=== PATIENT | male | born 1945 | race Caucasian/White ===

== ENCOUNTER 2017-03-05 08:56 | Emergency (ER) | payer MEDICARE ==
[~2017-03-05] VITALS: Ht 180.3 cm; Wt 62.7 kg
[2017-03-05] MEDS ORDERED: methylPREDNISolone INJ 125 MG/2 ML VIAL (J2930) IV ONE (09:15)
[2017-03-05] MEDS ORDERED: FLOM5CAP PO (09:19)
[2017-03-05] MEDS ORDERED: ALEN70TA39 PO (09:19)
[2017-03-05] MEDS ORDERED: GABA-282 PO (09:19)
[2017-03-05] MEDS ORDERED: HYDR-3713 PO (09:19)
[2017-03-05] MEDS: IPRATROPIUM 0.5MG/ALBUTEROL 2.5MG INH SOL UD 3ML (DUONEB)(J7620) NEB PRN ×3 (09:23→10:11)
[2017-03-05 09:27] LABS: ABG BASE EXCESS -1.7 (-2.0-2.0); ABG HCO3 21.9 MEQ/L (22.0-26.0); ABG PARTIAL PRESSURE CO2 33.7 mmHg (35.0-45.0); ABG STANDARD HCO3 22.7 MEQ/L (22.0-26.0); ABG pH (ARTERIAL) 7.431 UNITS (7.350-7.450)
--- NOTE | 2017-03-05 09:27 | REP ---
Clinical: Dyspnea. Cough. Comparison: None. Findings: Left-sided [id number] with tip in the SVC. Cardiac silhouette is within normal limits. Right lower lobe/right middle lobe mass density is identified. Chronic interstitial changes are suggested along with blunting to the diaphragmatic surfaces and costophrenic angles which may represent small pleural reactions or chronic change. No pneumothorax. Impression: Mass density in the medial right lower lung zone. Signed by Itz Wilkes MD 03/05/2017 09:18 A
[2017-03-05 09:29] LABS: ABG PARTIAL PRESSURE O2 40.8 mmHg (75.0-100.0)
[2017-03-05 09:32] LABS: BASO % 0.3 % (0.0-1.0); EOS # 0.4 10^3/uL (0.0-0.50); EOS % 3.3 % (0.0-3.0); IMMATURE GRANULOCYTE % 0.3 % (0-0); LYMPH # 1.7 10^3/uL (1.5-4.5); LYMPH % 12.6 % (24.0-44.0); MEAN CORPUSCULAR HEMOGLOBIN 30.9 pg (27.0-33.0); MEAN CORPUSCULAR HGB CONC 32.6 g/dl (32.0-36.5); MEAN CORPUSCULAR VOLUME 94.9 fl (80.0-96.0); MONO # 0.8 10^3/uL (0.0-0.8); MONO % 5.7 % (0.0-5.0); NEUTROPHILS # 10.2 10^3/uL (1.8-7.7); NEUTROPHILS % 77.8 % (36.0-66.0); PLATELET COUNT, AUTOMATED 258 10^3/uL (150-450); RED CELL DISTRIBUTION WIDTH 12.6 % (11.5-14.5); WHITE BLOOD COUNT 13.1 10^3/uL (4.0-10.0)
[2017-03-05 09:55] LABS: ANION GAP 9 MEQ/L (8-16); BLOOD UREA NITROGEN 14 MG/DL (7-18); CALCIUM LEVEL 8.8 MG/DL (8.8-10.2); CARBON DIOXIDE LEVEL 27 MEQ/L (21-32); CHLORIDE LEVEL 105 MEQ/L (98-107); CREATININE FOR GFR 0.82 MG/DL (0.70-1.30); GLOMERULAR FILTRATION RATE > 60.0 (>42); GLUCOSE, FASTING 123 MG/DL (83-110); POTASSIUM SERUM 3.8 MEQ/L (3.5-5.1); SODIUM LEVEL 141 MEQ/L (136-145)
[2017-03-05 10:00] LABS: ALBUMIN 3.5 GM/DL (3.2-5.2); ALBUMIN/GLOBULIN RATIO 0.8 (1.00-1.93); BILIRUBIN,DIRECT 0.1 MG/DL (0.0-0.2); BILIRUBIN,TOTAL 0.5 MG/DL (0.2-1.0); TOTAL PROTEIN 7.9 GM/DL (6.4-8.2)
[2017-03-05] MEDS ORDERED: ISOVUE-370 76% 100ML VIAL (Q9967) As Ordered ONE (10:10)
[2017-03-05] MEDS ORDERED: MOXIFLOXACIN HCL 400 MG in APPROPRIATE DILUENT 1 EA IV ONE (11:15)
[2017-03-05] MEDS ORDERED: NS 1,000 ML IV ONE ×2 (11:30)
[2017-03-05 11:45] VITALS: O2SAT 82
--- NOTE | 2017-03-05 12:15 | REP ---
Clinical: Hypoxia. Dyspnea. Technique: Axial contrast enhanced images from the thoracic inlet to the upper abdomen using 100 ml Isovue 370 intravenous contrast material with multiplanar MIP re-formations. Findings: A 6.5 x 4.7 x 5.3 cm presumed primary lung neoplasm is identified in the right middle lobe along with extensive conglomerate mediastinal and bilateral hilar adenopathy as well as 1.9 cm satellite lesion in the perihilar left upper lobe (image 44) and 1.1 cm satellite lesion in the right lower lobe (image 53). Left lower lobe and lingular consolidations are appreciated along with right lower lobe atelectasis and scattered bilateral ground-glass opacities. Underlying chronic interstitial changes and bronchiectasis are also apparent. No significant effusion. There is no evidence for pulmonary embolus. Thoracic aorta without aneurysm or dissection. No cardiomegaly. Surrounding musculoskeletal structures demonstrate degenerative changes. Limited upper abdomen demonstrates 10 mm nodule in the left adrenal gland which is nonspecific. Impression: 1. A 6.5 cm right middle lobe lung mass with extensive mediastinal and bilateral hilar adenopathy and at least two satellite lesions identified in the left upper lobe and right lower lobe. 2. Lingular and left lower lobe consolidations along with scattered bilateral ground-glass opacities. Underlying chronic interstitial changes and bronchiectasis. 3. No pulmonary embolus. Normal thoracic aorta without aneurysm or dissection. Signed by Itz Wilkes MD 03/05/2017 12:07 P
[2017-03-05 13:45] VITALS: BP 130/69
--- NOTE | 2017-03-05 18:11 | ECGEPIP ---
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
--- NOTE | 2017-03-05 19:02 | CR ---
DATE OF CONSULTATION: 03/05/2017 CONSULTATION FOR: Dr. Delacruz REASON FOR CONSULTATION: Hypoxic respiratory failure. PRIMARY CARE PROVIDER: Dr. Paulie Banegas THORACIC SURGEON: Dr. Miller. Covering thoracic surgeon, Dr. Stewart CHIEF COMPLAINT: Shortness of breath. HISTORY OF PRESENT ILLNESS: This is a 72-year-old male patient with underlying medical history of multiple sclerosis, baseline high functioning, able to ambulate. About a month ago patient had some shortness of breath. Subsequently had a chest x-ray done followed by CT scan with confirmation of lung cancer. Patient had bronchoscopy and repeat bronchoscopy with laser ligation done by Dr. Miller. Procedure was done on Wednesday. MRI of the brain was negative. PET scan was appreciated with metastatic stage IV cancer, squamous cell carcinoma, stage IV, as per family. Procedure was done at [facility] on Wednesday. As of yesterday reported some shortness of breath that is progressively worsening until this morning with severe dyspnea. Denies any significant cough, hemoptysis, or productive of any sputum. Patient denies any chest pain, pressure, or discomfort. In the emergency room patient was found to be hypoxic down to 50, placed initially on continuous positive airway pressure (CPAP). Did not tolerate. Later switched to 100% on re-breather. Patient started on broad-spectrum antibiotics. Hospitalist team was consulted for possible admission. Patient denies any chest pain, pressure, or discomfort. Denies any fevers or chills. Denies any sick contacts, nausea, vomiting. Currently feels a lot more comfortable than before but still remains on 100% rebreather. Patient desaturates with any movement. ALLERGIES: No known drug allergies. PAST MEDICAL HISTORY: 1. Recently diagnosed stage IV squamous cell lung cancer. 2. Multiple sclerosis. PAST SURGICAL HISTORY: 1. Cholecystectomy. 2. Laminectomy. 3. Bronchoscopy. SOCIAL HISTORY: Quit smoking 35 years ago. Denies alcohol use. Lives at home. Baseline ambulatory. FAMILY HISTORY: Brother with colon cancer. REVIEW OF SYSTEMS: Reported shortness of breath and no significant cough. Not on oxygen at home. Oncology: Patient was about to be set up see Dr. Fernanda Muro but has not yet seen Dr. Fernanda Muro. HOME MEDICATIONS: - hydrocodone/acetaminophen 5/325 mg by mouth three times a day as needed - alendronate 70 mg once a week on Wednesday - gabapentin 300 mg by mouth three times a day - Flomax 0.4 mg tablet by mouth daily PHYSICAL EXAMINATION: VITAL SIGNS: Temperature 97.7, pulse 103, respirations 22, blood pressure 130/69, pulse oximetry 91% on 100% nonrebreather. GENERAL: Patient frail in no acute distress. HEENT: Normocephalic, atraumatic. PULMONARY: Diminished breath sounds bilaterally. Bibasilar rhonchi. CARDIAC: Mild tachycardia, regular. No murmurs detected. S1, S2. ABDOMEN: Soft and nontender. Positive bowel sounds. EXTREMITIES: No clubbing, cyanosis, or edema. NEUROLOGIC: No focal deficits. EKG: Sinus tachycardia at 108. LABORATORY DATA: WBC 13.1, hemoglobin and hematocrit 12.7/39, platelets 258. Chemistry: Sodium 141, potassium 3.8, chloride 105, bicarbonate 27, BUN 14, creatinine 0.82, lactic acid 4.6. Cardiac enzymes: Troponin 0.19. Influenza negative. CT angiogram negative for pulmonary embolism (PE). Pressure of 6.5 cm, right middle lobe mass with extensive mediastinal and bilateral hilar adenopathy and at least two satellite lesions identified with left upper lobe and right lower lobe lingular and left lower lobe consolidation with scattered bilateral ground-glass opacity, underlying interstitial changes, and bronchiectasis. ASSESSMENT AND PLAN: This is a 72-year-old male patient with underlying medical history of stage IV squamous cell lung cancer, recently diagnosed with recent bronchoscopy on Wednesday as well as multiple sclerosis, presented with hypoxic respiratory failure. Hypoxic respiratory failure. Differential diagnoses include multilobar hospital-acquired pneumonia given recent procedures versus worsening cancer with postobstructive pneumonia. CT scan appreciated. Case discussed with emergency room provider as well as [facility] pulmonary thoracic physician, Dr. Stewart, and family. Patient does not want to be intubated and stated that in the event that his respiration worsens with 100% nonrebreather, he would like to be comfort measures, but as of right now he still wants to pursue all care, which includes antibiotics and chemotherapy regimen. Patient with only minimal leukocytosis. Case discussed with patient's family. Given patient has advanced cancer and [facility] does not offer inpatient chemotherapy, in the event that patient receives antibiotics for the next 24-48 hours without improvement, likely patient will need to be transferred to [facility] for further care, possible advanced bronchoscopy with stent placement and further treatment of underlying lesion versus inpatient chemotherapy, given it is patient's wish to continue to be treated for cancer. As of right now, family elected to be transferred right now given that they do not want to delay further care of the patient, which is actually reasonable. Case discussed with Dr. Stewart. Agreeable to accept the patient for transfer. Antibiotics given in the emergency department (ED). Case discussed with Dr. Delacruz. Subsequently transfer was arranged.
== END 2017-03-05 13:55 | disposition short-term general hospital (02) ==
LOC: M ED 08:56
DX: R09.02 Hypoxemia (principal); R06.02 Shortness of breath; R91.8 Other nonspecific abnormal finding of lung field; R00.0 Tachycardia, unspecified; C34.90 Malignant neoplasm of unspecified part of unspecified bronchus or lung; G35 Multiple sclerosis
CPT/HCPCS: 36600; 71010; 71275; 80048; 80076; 82550; 82553; 82803; 83605; 83880; 84443; 84484; 85025; 87040; 87804; 93005; 93041; 94640; 96374; 96375; 99291; J2280; J2930; Q9967

== ENCOUNTER 2017-03-11 17:51 | Emergency (ER) | payer MEDICARE ==
[~2017-03-11] VITALS: Ht 180.3 cm; Wt 62.7 kg
[~2017-03-11 17:51] MED LIST: ALEN70TA39 PO; FLOM5CAP PO; GABA-282 PO; HYDR-3713 PO
[2017-03-11 18:30] LABS: ABG BASE EXCESS 2.5 (-2.0-2.0); ABG HCO3 25.2 MEQ/L (22.0-26.0); ABG PARTIAL PRESSURE CO2 32.7 mmHg (35.0-45.0); ABG PARTIAL PRESSURE O2 89.1 mmHg (75.0-100.0); ABG STANDARD HCO3 26.7 MEQ/L (22.0-26.0); ABG TOTAL CO2 26.2 MEQ/L (23.0-31.0); ABG pH (ARTERIAL) 7.505 UNITS (7.350-7.450)
[2017-03-11 19:53] LABS: BASO % 0.2 % (0.0-1.0); IMMATURE GRANULOCYTE % 0.4 % (0-0); LYMPH % 1.7 % (24.0-44.0); MEAN CORPUSCULAR HEMOGLOBIN 30.9 pg (27.0-33.0); MEAN CORPUSCULAR HGB CONC 33.6 g/dl (32.0-36.5); MEAN CORPUSCULAR VOLUME 91.8 fl (80.0-96.0); MONO # 0.6 10^3/uL (0.0-0.8); MONO % 4.5 % (0.0-5.0); NEUTROPHILS # 11.6 10^3/uL (1.8-7.7); NEUTROPHILS % 93.2 % (36.0-66.0); PLATELET COUNT, AUTOMATED 432 10^3/uL (150-450); RED CELL DISTRIBUTION WIDTH 12.7 % (11.5-14.5); WHITE BLOOD COUNT 12.4 10^3/uL (4.0-10.0)
[2017-03-11] MEDS ORDERED: VANCOMYCIN HCL 1,000 MG, VIAL MATE ADAPTER 1 EACH in D5W 250 ML IV ONE (20:00)
[2017-03-11] MEDS ORDERED: PIPERACILLIN/TAZOBACTAM SOD 3.375 GM in APPROPRIATE DILUENT 1 EA IV ONE (20:00)
--- NOTE | 2017-03-11 20:00 | REP ---
Clinical: Known right lung mass with shortness of breath. Comparison: 03/05/2017. Findings: Marked diffuse bilateral ground-glass and interstitial opacities noted throughout the bilateral lung mcnair. The right lung mass is obscured by overlying opacities. Forming consolidations with air bronchograms are also suggested and the right upper lobe and to a lesser extent the left upper lobe. No obvious effusion. No pneumothorax. Skeletal structures are intact. [id number]-[id number]-Mzwi with tip in the SVC. Impression: Marked increased diffuse ground-glass and interstitial opacities with forming consolidations and air bronchograms in the right upper lobe and left upper lobe. Right lower lung mass obscured by the opacities. Signed by Itz Wilkes MD 03/11/2017 07:52 P
[2017-03-11 20:21] LABS: LYMPH # 0.2 10^3/uL (1.5-4.5); POSITIVE DIFF POS FLAG
[2017-03-11 20:31] LABS: ALBUMIN 2.4 GM/DL (3.2-5.2); ALKALINE PHOSPHATASE 77 U/L (45-117); ALT/SGPT 20 U/L (12-78); ANION GAP 10 MEQ/L (8-16); AST/SGOT 24 U/L (7-37); BILIRUBIN,DIRECT 0.3 MG/DL (0.0-0.2); BLOOD UREA NITROGEN 15 MG/DL (7-18); CALCIUM LEVEL 8.4 MG/DL (8.8-10.2); CARBON DIOXIDE LEVEL 30 MEQ/L (21-32); CHLORIDE LEVEL 101 MEQ/L (98-107); CREATININE FOR GFR 0.55 MG/DL (0.70-1.30); GLOMERULAR FILTRATION RATE > 60.0 (>42); GLUCOSE, FASTING 125 MG/DL (83-110); POTASSIUM SERUM 3.9 MEQ/L (3.5-5.1); SODIUM LEVEL 141 MEQ/L (136-145); TOTAL PROTEIN 6.4 GM/DL (6.4-8.2)
[2017-03-11] MEDS ORDERED: FUROSEMIDE 40 MG/4 ML VIAL (J1940) IV ONE (21:00)
[2017-03-11 22:59] VITALS: BP 128/72
== END 2017-03-11 23:01 | disposition short-term general hospital (02) ==
LOC: EDBD 17:51 → M ED 17:51
DX: J18.9 Pneumonia, unspecified organism (principal); R94.31 Abnormal electrocardiogram [ECG] [EKG]; C34.90 Malignant neoplasm of unspecified part of unspecified bronchus or lung; G35 Multiple sclerosis; Z87.891 Personal history of nicotine dependence; Z79.899 Other long term (current) drug therapy
CPT/HCPCS: 36415; 36600; 71010; 80048; 80076; 82550; 82553; 82803; 83605; 83880; 84443; 84484; 85025; 87040; 87804; 93041; 96365; 96366; 96367; 96374; 99285; J1940; J2543; J3370

== ENCOUNTER → 2017-03-22 | Outpatient (REF) ==
[2017-03-22 08:46] LABS: MEAN CORPUSCULAR HGB CONC 32.1 g/dl (32.0-36.5); MEAN CORPUSCULAR VOLUME 93.5 fl (80.0-96.0); PLATELET COUNT, AUTOMATED 329 10^3/uL (150-450); RED CELL DISTRIBUTION WIDTH 12.7 % (11.5-14.5)
[2017-03-22 09:16] LABS: ALBUMIN 2.6 GM/DL (3.2-5.2); ALBUMIN/GLOBULIN RATIO 0.63 (1.00-1.93); ALKALINE PHOSPHATASE 56 U/L (45-117); ALT/SGPT 17 U/L (12-78); ANION GAP 9 MEQ/L (8-16); AST/SGOT 22 U/L (7-37); BILIRUBIN,TOTAL 0.3 MG/DL (0.2-1.0); BLOOD UREA NITROGEN 15 MG/DL (7-18); CALCIUM LEVEL 8.5 MG/DL (8.8-10.2); CARBON DIOXIDE LEVEL 27 MEQ/L (21-32); CHLORIDE LEVEL 104 MEQ/L (98-107); CREATININE FOR GFR 0.59 MG/DL (0.70-1.30); GLOMERULAR FILTRATION RATE > 60.0 (>42); GLUCOSE, FASTING 113 MG/DL (83-110); POTASSIUM SERUM 4.2 MEQ/L (3.5-5.1); SODIUM LEVEL 140 MEQ/L (136-145); TOTAL PROTEIN 6.7 GM/DL (6.4-8.2)
== END ==
LOC: SKLAB4 09:13
PROVIDERS: ATTEND Internal Medicine
DX: Z00.00 Encounter for general adult medical examination without abnormal findings (principal)

== ENCOUNTER → 2017-03-29 | Outpatient (REF) ==
[2017-03-29 08:57] LABS: MEAN CORPUSCULAR HEMOGLOBIN 30.1 pg (27.0-33.0); MEAN CORPUSCULAR HGB CONC 31.6 g/dl (32.0-36.5); MEAN CORPUSCULAR VOLUME 95.1 fl (80.0-96.0); PLATELET COUNT, AUTOMATED 353 10^3/uL (150-450); RED CELL DISTRIBUTION WIDTH 13.2 % (11.5-14.5); WHITE BLOOD COUNT 6.1 10^3/uL (4.0-10.0)
== END ==
LOC: SKLAB4 09:40
PROVIDERS: ATTEND Internal Medicine
DX: D64.9 Anemia, unspecified (principal)

== ENCOUNTER → 2017-04-01 | Outpatient (CLI) | payer MEDICARE ==
[~2017-04-01] MED LIST changes: +GASTROGRAFIN SOLUTION 30ML (Q9963) As Ordered ONE; +ISOVUE-370 76% 100ML VIAL (Q9967) As Ordered ONE
--- NOTE | 2017-04-01 11:40 | REP ---
CT ABDOMEN AND PELVIS WITHOUT AND WITH IV CONTRAST: With oral contrast. HISTORY: Non-small cell carcinoma of the lung. CT CONTRAST DOSE: 100 mL of intravenous Isovue 370. Oral contrast also administered in the form of a diluted Gastrografin. Comparison is made with images from PET/CT scan done February 09, 2017. CT FINDINGS: Digital gallery or museum curator radiograph demonstrates a 5.9 cm mass in the right infrahilar region and at least one other pulmonary nodule in the left perihilar region. There is a small right pleural effusion. No ascites is seen. The liver and the spleen are normal in size and homogeneous in texture. There are gallbladder clips post cholecystectomy. CBD measures 8 mm, which is normal caliber post cholecystectomy. No adrenal lesion is seen on either side. No pancreatic mass lesion is observed. No upper abdominal adenopathy is seen. Kidneys enhance symmetrically. There are scattered small renal cysts. The kidneys are otherwise intact. There are two large appendicoliths in the right lower quadrant. No appendiceal inflammation or wall thickening is seen. These appendicolith measures 17 and 9 mm diameter respectively. The appendix is not dilated. No adjacent fluid. They are unchanged from the February 09, 2017 PET/CT images. No pelvic mass or adenopathy is seen. Gann catheter is noted in the urinary bladder which is empty. There are dystrophic calcifications in the prostate. No abdominal wall defect is seen. No bony destructive lesion is seen. IMPRESSION: 1. There is no evidence of intra-abdominal metastatic disease. 2. Gann catheter in the urinary bladder. 3. Postcholecystectomy. 4. Two adjacent large appendicoliths in the right lower quadrant without evidence of inflammatory change. 5. No mass or adenopathy seen. Signed by David Bethea MD 04/01/2017 03:57 P
--- NOTE | 2017-04-01 14:46 | REP ---
WHOLE BODY BONE SCAN: Following the intravenous administration of 21.2 millicuries technetium 99m MDP, the patient's whole body is imaged in the anterior and posterior projections with additional oblique and lateral images obtained. There appears to be mild arthritis uptake in the posterior cervical facet joints. There also appears to be mild arthritic uptake at the sacroiliac joints. Bilaterally. There is no compelling scintigraphic evidence of osseous metastases. Renal and bladder activity are seen. IMPRESSION: No compelling scintigraphic evidence of osseous metastases. Signed by Fredy Fitzpatrick MD 04/01/2017 08:40 P
== END ==
LOC: M RAD 07:59
PROVIDERS: ATTEND Internal Medicine Medical Oncology
DX: C34.90 Malignant neoplasm of unspecified part of unspecified bronchus or lung (principal)
CPT/HCPCS: 74178; 78306; A9503; Q9963; Q9967

== ENCOUNTER → 2017-04-06 | Outpatient (REF) ==
[~2017-04-06] MED LIST changes: -GASTROGRAFIN SOLUTION 30ML (Q9963) As Ordered ONE; -ISOVUE-370 76% 100ML VIAL (Q9967) As Ordered ONE
[2017-04-06 08:23] LABS: MEAN CORPUSCULAR HEMOGLOBIN 30.5 pg (27.0-33.0); MEAN CORPUSCULAR HGB CONC 32.1 g/dl (32.0-36.5); MEAN CORPUSCULAR VOLUME 94.9 fl (80.0-96.0); PLATELET COUNT, AUTOMATED 275 10^3/uL (150-450); RED CELL DISTRIBUTION WIDTH 13.5 % (11.5-14.5); WHITE BLOOD COUNT 13.9 10^3/uL (4.0-10.0)
[2017-04-06 14:32] LABS: CALCIUM OXALATE CRYSTALS SMALL; RENAL EPITHELIAL CELLS 1 /HPF
== END ==
LOC: SKLAB4 10:38
PROVIDERS: ATTEND Internal Medicine
DX: D64.9 Anemia, unspecified (principal)

== ENCOUNTER → 2017-04-13 | Outpatient (REF) ==
[2017-04-13 08:45] LABS: HEMATOCRIT 33.9 % (42.0-52.0); HEMOGLOBIN 10.9 g/dl (14.0-18.0); MEAN CORPUSCULAR HEMOGLOBIN 29.9 pg (27.0-33.0); MEAN CORPUSCULAR HGB CONC 32.2 g/dl (32.0-36.5); MEAN CORPUSCULAR VOLUME 93.1 fl (80.0-96.0); PLATELET COUNT, AUTOMATED 399 10^3/uL (150-450); RED BLOOD COUNT 3.64 10^6/uL (4.30-6.10); RED CELL DISTRIBUTION WIDTH 13.4 % (11.5-14.5)
== END ==
LOC: SKLAB4 09:55
DX: D64.9 Anemia, unspecified (principal)

== ENCOUNTER → 2017-04-16 | Outpatient (CLI) | payer MEDICARE | LOC: M CARPUL 10:09 | DX: C34.90 Malignant neoplasm of unspecified part of unspecified bronchus or lung (principal); R93.1 Abnormal findings on diagnostic imaging of heart and coronary circulation; Z79.899 Other long term (current) drug therapy | CPT/HCPCS: 93306 ==

== ENCOUNTER → 2017-04-26 | Outpatient (REF) | payer MEDICARE ==
[2017-04-27 09:43] LABS: CARCINOEMBRYONIC ANTIGEN 1.3 NG/ML (<2.5)
== END ==
LOC: M LAB REF 12:37
DX: C34.90 Malignant neoplasm of unspecified part of unspecified bronchus or lung (principal)
CPT/HCPCS: 82378

== ENCOUNTER → 2017-05-18 | Outpatient (REF) | payer MEDICARE ==
[2017-05-18 19:42] LABS: THYROID STIMULATING HORMONE 0.981 uIU/ML (0.358-3.740)
== END ==
LOC: M LAB REF 18:25
DX: C34.90 Malignant neoplasm of unspecified part of unspecified bronchus or lung (principal); Z79.899 Other long term (current) drug therapy
CPT/HCPCS: 84443

== ENCOUNTER → 2017-06-08 | Outpatient (REF) | payer MEDICARE ==
[2017-06-08 20:42] LABS: THYROID STIMULATING HORMONE 0.046 uIU/ML (0.358-3.740)
== END ==
LOC: M LAB REF 18:03
DX: C34.90 Malignant neoplasm of unspecified part of unspecified bronchus or lung (principal)
CPT/HCPCS: 84443

== ENCOUNTER → 2017-06-29 | Outpatient (REF) | payer MEDICARE ==
[2017-06-29 19:16] LABS: THYROID STIMULATING HORMONE < 0.005 uIU/ML (0.358-3.740)
== END ==
LOC: M LAB REF 17:33
DX: C34.90 Malignant neoplasm of unspecified part of unspecified bronchus or lung (principal); Z79.899 Other long term (current) drug therapy
CPT/HCPCS: 84443

== ENCOUNTER → 2017-08-03 | Outpatient (CLI) | payer MEDICARE | LOC: M PLARAD 09:01 | DX: C34.2 Malignant neoplasm of middle lobe, bronchus or lung (principal) | CPT/HCPCS: 78815 ==

== ENCOUNTER → 2017-08-10 | Outpatient (REF) | payer MEDICARE ==
[2017-08-10 20:21] LABS: THYROID STIMULATING HORMONE 0.054 uIU/ML (0.358-3.740)
[2017-08-11 10:27] LABS: TOTAL T3 106.9 NG/DL (60.0-181.0)
== END ==
LOC: M LAB REF 19:14
DX: C34.2 Malignant neoplasm of middle lobe, bronchus or lung (principal); C78.02 Secondary malignant neoplasm of left lung; C34.90 Malignant neoplasm of unspecified part of unspecified bronchus or lung; E07.9 Disorder of thyroid, unspecified
CPT/HCPCS: 84443

== ENCOUNTER → 2017-08-31 | Outpatient (REF) | payer MEDICARE | LOC: M LAB REF 17:10 | DX: C34.2 Malignant neoplasm of middle lobe, bronchus or lung (principal); C78.02 Secondary malignant neoplasm of left lung; C34.90 Malignant neoplasm of unspecified part of unspecified bronchus or lung; Z79.899 Other long term (current) drug therapy | CPT/HCPCS: 84443 ==

== ENCOUNTER → 2017-09-15 | Outpatient (REF) | payer MEDICARE ==
[2017-09-15 15:11] LABS: THYROID PEROXIDASE ANTIBODY < 28.0 U/ML (<60.0)
[2017-09-15 15:27] LABS: FREE T4 0.49 NG/DL (0.76-1.46)
[2017-09-21 00:10] LABS: THRYOGLOBULIN ANTIBODIES (ATA) 3.4 IU/mL (0.0-0.9); THYROGLOBULIN RIA 71 ng/mL (.)
== END ==
LOC: M LAB REF 14:07
DX: E06.9 Thyroiditis, unspecified (principal)
CPT/HCPCS: 84443

== ENCOUNTER → 2017-10-26 | Outpatient (REF) | payer MEDICARE | LOC: M LAB REF 17:37 | DX: Z51.81 Encounter for therapeutic drug level monitoring (principal); Z79.899 Other long term (current) drug therapy; C34.2 Malignant neoplasm of middle lobe, bronchus or lung; C78.02 Secondary malignant neoplasm of left lung; C34.90 Malignant neoplasm of unspecified part of unspecified bronchus or lung; E03.2 Hypothyroidism due to medicaments and other exogenous substances | CPT/HCPCS: 84443 ==

== ENCOUNTER → 2017-10-28 | Outpatient (CLI) | payer MEDICARE ==
[~2017-10-28] MED LIST changes: -ALEN70TA39 PO; -FLOM5CAP PO; -GABA-282 PO; +GASTROGRAFIN SOLUTION 30ML (Q9963) As Ordered; -HYDR-3713 PO; +ISOVUE-370 76% 100ML VIAL (Q9967) As Ordered
== END ==
LOC: M RAD 13:48
DX: C34.2 Malignant neoplasm of middle lobe, bronchus or lung (principal); J84.10 Pulmonary fibrosis, unspecified; I25.10 Atherosclerotic heart disease of native coronary artery without angina pectoris; N28.1 Cyst of kidney, acquired; N21.0 Calculus in bladder
CPT/HCPCS: Q9963

== ENCOUNTER → 2017-11-16 | Outpatient (REF) | payer MEDICARE | LOC: M LAB REF 17:29 | DX: C34.2 Malignant neoplasm of middle lobe, bronchus or lung (principal); C78.02 Secondary malignant neoplasm of left lung; C34.90 Malignant neoplasm of unspecified part of unspecified bronchus or lung; E03.2 Hypothyroidism due to medicaments and other exogenous substances | CPT/HCPCS: 84443 ==

== ENCOUNTER → 2018-07-20 | Outpatient (CLI) | payer MEDICARE ==
[~2018-07-20] MED LIST changes: +ALEN70TA74 PO; +BACL1TAB9 PO; +EMLA CREAM 5GM (LIDOCAINE/PRILOCAINE) As Ordered ONE; +FLOM0.4C39 PO; +FOLI1TAB11 PO; +GABA-843 PO; -GASTROGRAFIN SOLUTION 30ML (Q9963) As Ordered; +GASTROGRAFIN SOLUTION 30ML (Q9963) As Ordered ONE; +HYDR-3713 PO; -ISOVUE-370 76% 100ML VIAL (Q9967) As Ordered; +ISOVUE-370 76% 100ML VIAL (Q9967) As Ordered ONE; +LEVO112T25 PO; +OSTE5TAB PO; +OSTETAB7 PO; +PHILCAP4 PO; +SENN8.6T17 PO; +SYNT100T PO
--- NOTE | 2018-07-20 16:22 | REP ---
CT of the chest with IV contrast for stage IV squamous cell lung carcinoma: Comparison is 04/08/2018. The known right middle lobe lung mass has increased in size today measuring 4.0 cm AP by 4.9 cm transversely by 4.5 cm craniocaudad. This lesion previously measured 4.9 x 3.3 x 4.3 cm. There are no other lung masses or cysts. There are findings compatible with pleuroparenchymal scarring in the right apex, unchanged. There are no infiltrates or pleural effusions. There is persisting soft tissue density in the precarinal and subcarinal mediastinum, unchanged. There is hypermetabolic on the PET scan of 08/03/2017, suggestive of confluent adenopathy. There is no other mediastinal, hilar, chest wall lymph node enlargement. Thoracic aorta is unremarkable. Cardiac size is normal. There is no pericardial effusion. Impression: The known right little lobe mass has increased in size. The mediastinal adenopathy is unchanged. There are no other interval changes. Electronically Signed by Fredy Benitez MD 07/20/2018 04:13 P
--- NOTE | 2018-07-20 17:07 | REP ---
CT of the abdomen and pelvis with IV and oral contrast for follow up of stage IV squamous cell carcinoma: Comparison is 04/08/2018. In the visualized lower lung mcnair. The patient's known right middle lobe lung mass is again identified. There are multiple surgical clips in the gallbladder fossa suggestive of cholecystectomy. There is intrahepatic biliary duct dilatation, likely secondary to post cholecystectomy state. The common biliary duct measures 11 mm in diameter which is upper normal post cholecystectomy. The pancreas and spleen are normal size and unremarkable. There is no adrenal mass. The adrenals are unremarkable. The kidneys are unremarkable. The abdominal aorta is unremarkable. There is no retroperitoneal adenopathy or mass. There is no bowel distension or obstruction. The mesentery is unremarkable. There is no ascites. Pelvis: There are calcifications along the posterior wall of the bladder. These have increased in number from the prior study. The bladder is otherwise unremarkable. There is no pelvic adenopathy. The pelvic bowel loops are unremarkable. There is a large ring-shaped appendicolith, unchanged. No evidence of acute appendicitis. Impression: There is no abdominal mass, adenopathy or metastatic disease. Cholecystectomy with post cholecystectomy. Intrahepatic biliary duct dilatation, unchanged. Known lung right middle lobe mass is again identified. Calcifications along the posterior wall of the bladder have increased in number. Electronically Signed by Fredy Benitez MD 07/20/2018 04:58 P
== END ==
LOC: M RAD 11:49
PROVIDERS: ATTEND Internal Medicine Medical Oncology
DX: C34.2 Malignant neoplasm of middle lobe, bronchus or lung (principal)
CPT/HCPCS: 71260; 74177; Q9963; Q9967

== ENCOUNTER → 2018-10-17 | Outpatient (CLI) | payer MEDICARE ==
[~2018-10-17] MED LIST changes: -EMLA CREAM 5GM (LIDOCAINE/PRILOCAINE) As Ordered ONE; +LORA-674 PO; +MEGE40SU5 PO; +ONDA8TAB7 PO; +PROC10TA4 PO
--- NOTE | 2018-10-18 06:58 | REP ---
CT CHEST WITH IV CONTRAST: TECHNIQUE: Axial contrast enhanced images from the thoracic inlet to the upper abdomen using 100 mL Isovue 370 intravenous contrast material with multiplanar reformations. COMPARISON: 07/20/2018. Previously noted ill-defined opacity in the right apex is stable. The right middle lobe mass has decreased in size. Previously it measured approximately 4.9 x 4.3 cm. Currently it measures approximately 3.0 x 2.0 cm. There is some mild new patchy parenchymal infiltrate in the upper aspect of the left lower lobe. No other new parenchymal opacities are seen. Scattered fibrotic changes are again seen. Precarinal and subcarinal soft tissue opacity is stable. No new adenopathy is seen. The heart is normal in size. There is no pleural or pericardial effusion. There are degenerative changes of the spine. IMPRESSION: Previously noted right middle lobe mass has decreased in size now measuring 2.0 x 3.0 cm. There is mild new patchy parenchymal infiltrate in the left lower lobe. Otherwise stable. Electronically Signed by Fredy Fitzpatrick MD 10/19/2018 09:38 A
--- NOTE | 2018-10-18 07:01 | REP ---
CT ABDOMEN AND PELVIS WITH ORAL AND IV CONTRAST: TECHNIQUE: Axial contrast enhanced images from the lung bases to the pubic symphysis using 100 mL Isovue 370 intravenous contrast material with multiplanar reformations. COMPARISON: 07/20/2018. No liver mass is seen. There is diffuse intrahepatic and extrahepatic biliary dilatation which is stable. The patient has had a prior cholecystectomy. The spleen, adrenals and pancreas are unremarkable. A few small cysts are seen in the kidneys. There is no hydronephrosis. There is no abdominal aortic aneurysm. There is no adenopathy. There is no free air or free fluid. There is no bowel wall thickening. Appendicolith is unchanged. Bladder calcifications are unchanged. There are degenerative changes of the spine. IMPRESSION: Stable chronic findings. No new mass or adenopathy. Electronically Signed by Fredy Fitzpatrick MD 10/19/2018 09:38 A
== END ==
LOC: M RAD 07:34
PROVIDERS: ATTEND Internal Medicine Medical Oncology
DX: C34.90 Malignant neoplasm of unspecified part of unspecified bronchus or lung (principal)
CPT/HCPCS: 71260; 74177; Q9963; Q9967

== ENCOUNTER → 2019-02-09 | Outpatient (CLI) | payer MEDICARE ==
[~2019-02-09] MED LIST changes: +CELE10TA PO; +CELE20TA PO
--- NOTE | 2019-02-09 12:53 | REP ---
Clinical: Lung cancer. Follow-up. Technique: Axial contrast enhanced images from the lung bases to the pubic symphysis using oral (per protocol) and 100 ml Isovue 370 intravenous contrast material with delayed images of the abdomen as well as coronal and sagittal re-formations. Comparison: 10/17/2018. Findings: The patient is status post cholecystectomy with stable compensatory intrahepatic and extrahepatic biliary ductal dilatation. Liver, spleen, pancreas, bilateral adrenal glands and kidneys are otherwise relatively normal. Small bilateral renal cysts again noted and stable. The enteric system is without obstruction or acute inflammatory process. A large appendicolith is again identified at the base of the appendix measuring approximately 18 mm and remains stable. No evidence for appendicitis. Scattered sigmoid diverticula noted without acute diverticulitis. Pelvis demonstrates bladder calculi and relatively normal prostate/seminal vesicles. No ascites. No free air. No adenopathy. No obvious abdominopelvic mass lesion. Atherosclerotic changes to the aorta and vasculature without aneurysm or dissection. Musculoskeletal structures demonstrate age-related changes without focal abnormality. Impression: 1. No acute abdominopelvic pathology appreciated. No evidence for metastatic disease. 2. No ascites, focal inflammatory stranding, or adenopathy. 3. Chronic stable changes as described above. Electronically Signed by Itz Wilkes MD 02/09/2019 12:44 P
--- NOTE | 2019-02-09 12:59 | REP ---
Clinical: Lung cancer. Follow-up. Technique: Axial contrast enhanced images from the thoracic inlet to the upper abdomen with coronal and sagittal re-formations using 100 ml Isovue 370 intravenous contrast material. Comparison: 10/17/2018. Findings: Scattered chronic interstitial and fibroatelectatic changes along with chronic bronchiectasis again noted. Right middle lobe mass with peripheral scarring is unchanged and measures approximately 3 cm maximal diameter. Increased linear scarring along the left major fissure as well as new somewhat irregular linear density along the periphery of the left upper lobe (images 40-45) represent subtle change from prior examination. Evaluation of the mediastinum demonstrates stable soft tissue in the subcarinal space and no evidence for new adenopathy. Thoracic aorta without aneurysm or dissection. No cardiomegaly or pericardial effusion. Musculoskeletal structures intact without focal abnormality. [id number] in the left anterior chest wall extends into the SVC. Impression: 1. Right middle lobe mass remains relatively stable as compared to 10/17/2018. 2. Subtle increased linear areas of opacity are identified in the left upper lobe and adjacent to the left major fissure which is a new finding but may represent progressive scarring. 3-6 month follow-up may be warranted. 4. No further new, acute process identified. Electronically Signed by Itz Wilkes MD 02/09/2019 12:51 P
== END ==
LOC: M RAD 10:52
PROVIDERS: ATTEND Internal Medicine Medical Oncology
DX: C34.2 Malignant neoplasm of middle lobe, bronchus or lung (principal); Z95.828 Presence of other vascular implants and grafts; Z90.49 Acquired absence of other specified parts of digestive tract; K57.30 Diverticulosis of large intestine without perforation or abscess without bleeding; I70.0 Atherosclerosis of aorta; Z92.21 Personal history of antineoplastic chemotherapy
CPT/HCPCS: 71260; 74177; Q9963; Q9967

== ENCOUNTER → 2019-02-23 | Outpatient (CLI) | payer MEDICARE ==
[~2019-02-23] MED LIST changes: +ATIV1TAB10 PO; -GASTROGRAFIN SOLUTION 30ML (Q9963) As Ordered ONE
--- NOTE | 2019-02-23 10:02 | REP ---
CT brain: 02/23/2019. Indication: Vertigo. Lung carcinoma. Comparison: None. Technique: Axial images of the brain were obtained with and without IV contrast. 75 ml IV Isovue 370 were administered. Findings: There is no acute intracranial hemorrhage, acute cortical infarction, mass effect, hydrocephalus or pathologic contrast enhancement. Diffuse volume loss is present. Patchy areas of white matter hypoattenuation are noted most consistent with chronic small vessel disease. Impression: No acute intracranial process or intracranial metastases detected. Electronically Signed by Daniele Guerra DO 02/23/2019 09:54 A
== END ==
LOC: M RAD 08:56
PROVIDERS: ATTEND Nurse Practitioner Family
DX: C34.90 Malignant neoplasm of unspecified part of unspecified bronchus or lung (principal); R42 Dizziness and giddiness

== ENCOUNTER 2019-03-30 10:18 | Inpatient (IN) | payer MEDICARE ==
[~2019-03-30] VITALS: Ht 180.3 cm; Wt 56.3 kg
[~2019-03-30 10:18] MED LIST changes: -ISOVUE-370 76% 100ML VIAL (Q9967) As Ordered ONE
[2019-03-30] MEDS ORDERED: NS 500 ML IV ONE (11:15)
--- NOTE | 2019-03-30 11:34 | REP ---
CT brain: 03/30/2019. Indication: Altered mental status. Stroke. Comparison: 02/23/2019. Technique: Unenhanced axial CT images of the brain were obtained from skull base to vertex. Findings: There is no acute intracranial hemorrhage, acute cortical infarction, or hydrocephalous. Diffuse volume loss is present. There is no acute calvarial fracture. Impression: No acute intracranial process. Electronically Signed by Daniele Guerra DO 03/30/2019 11:25 A
--- NOTE | 2019-03-30 11:41 | REP ---
CT cervical spine: 03/30/2019. Indication: Cervical spine trauma. Comparison: CT chest dated 02/09/2019. Technique: Unenhanced axial CT images of the cervical spine were performed with coronal sagittal reconstructions provided. Findings: There is no acute fracture, subluxation or dislocation. C4 - C6 postoperative sequelae are present. The prevertebral soft tissues are unremarkable. There is straightening of the cervical lordosis. No hemorrhage or additional significant acute post traumatic sequelae are present within the spinal canal. There is abnormal soft tissue within the right lung apex which appears more conspicuous compared to the CT chest performed approximate 2 months earlier. Impression: No acute osseous injury of the cervical spine. Electronically Signed by Daniele Guerra DO 03/30/2019 11:32 A
--- NOTE | 2019-03-30 11:48 | REP ---
Single view chest: 03/30/2019. Indication: Altered mental status. Comparison: CTs dated today and 02/09/2019. Findings: The lungs are hyperinflated. There is a tiny right pleural effusion. Left-sided Port-A-Cath is present with the tip at the cavoatrial junction. The cardiac silhouette is unremarkable. The soft tissue masses within the right lung apex and right lower lobe are better demonstrated by CT technique. There is no pneumothorax. Impression: No acute cardiopulmonary process. Electronically Signed by Daniele Guerra DO 03/30/2019 11:39 A
[2019-03-30] MEDS ORDERED: SODIUM CHLORIDE 0.9% INJ 10 ML SYR IV PRN (12:15)
[2019-03-30 12:28] LABS: VENOUS PH 7.401 UNITS (7.330-7.430)
[2019-03-30 12:29] LABS: VENOUS BASE EXCESS -0.6 (-2.0-2.0); VENOUS HCO3 24.1 MEQ/L (23.0-27.0); VENOUS O2 SATURATION 77.2 % (60.0-80.0); VENOUS PARTIAL PRESSURE CO2 39.7 mmHg (38.0-50.0); VENOUS PARTIAL PRESSURE O2 40.6 mmHg (30.0-50.0); VENOUS STANDARD HCO3 23.6 MEQ/L; VENOUS TOTAL CO2 25.3 MEQ/L (24.0-28.0)
[2019-03-30 12:41] LABS: BASO % 0.4 % (0.0-1.0); EOS # 0.1 10^3/uL (0.0-0.5); EOS % 2.3 % (0.0-3.0); LYMPH # 1.3 10^3/uL (1.5-5.0); LYMPH % 27.6 % (24.0-44.0); MEAN CORPUSCULAR HEMOGLOBIN 33.6 pg (27.0-33.0); MEAN CORPUSCULAR HGB CONC 33.3 g/dl (32.0-36.5); MEAN CORPUSCULAR VOLUME 100.9 fl (80.0-96.0); MONO # 0.5 10^3/uL (0.0-0.8); MONO % 10.5 % (0.0-5.0); NEUTROPHILS # 2.8 10^3/uL (1.5-8.5); NEUTROPHILS % 58.8 % (36.0-66.0); PLATELET COUNT, AUTOMATED 256 10^3/uL (150-450); RED BLOOD COUNT 3.27 10^6/uL (4.30-6.10); WHITE BLOOD COUNT 4.8 10^3/uL (4.0-10.0)
[2019-03-30 13:08] LABS: ACETAMINOPHEN LEVEL 2.4 UG/ML (10.0-30.0); ALBUMIN 3.5 GM/DL (3.2-5.2); ALT/SGPT 24 U/L (12-78); BILIRUBIN,DIRECT 0.2 MG/DL (0.0-0.2); BILIRUBIN,TOTAL 0.8 MG/DL (0.2-1.0); BLOOD UREA NITROGEN 13 MG/DL (7-18); CARBON DIOXIDE LEVEL 28 MEQ/L (21-32); CHLORIDE LEVEL 104 MEQ/L (98-107); CK-MB VALUE MASS 2.7 NG/ML (<3.6); CPK CREATINE PHOSPHOKINASE 145 U/L (39-308); CREATININE FOR GFR 0.81 MG/DL (0.70-1.30); ETHYL ALCOHOL (ETHANOL) < 0.003 % (0.000-0.010); GLOMERULAR FILTRATION RATE > 60.0 (>42); GLUCOSE, FASTING 88 MG/DL (70-100); MB/CK RELATIVE INDEX 1.86 (< OR =4); POTASSIUM SERUM 3.8 MEQ/L (3.5-5.1); SALICYLATE LEVEL < 1.7 MG/DL (5.0-30.0); SODIUM LEVEL 139 MEQ/L (136-145); TOTAL PROTEIN 6.7 GM/DL (6.4-8.2); TROPONIN I < 0.02 NG/ML (< 0.10)
[2019-03-30 13:22] LABS: OSMOLALITY SERUM 291 MOSM/KG (280-301)
[2019-03-30] MEDS ORDERED: NS 1,000 ML IV ONE (14:30)
[2019-03-30] MEDS ORDERED: [UNRECOGNIZED DRUG - OTHER] PO (15:12)
[2019-03-30] MEDS ORDERED: MUCI600T31 PO (15:12)
[2019-03-30] MEDS ORDERED: LEVO137T2 PO (15:12)
[2019-03-30] MEDS ORDERED: ASPI81TA26 PO (15:12)
[2019-03-30] MEDS ORDERED: D-20TAB PO (15:12)
[2019-03-30] MEDS ORDERED: MOM 30ML SUSPENSION UDC PO PRN (15:45)
[2019-03-30] MEDS ORDERED: MAALOX 30 ML SUSP *UDC PO PRN (15:45)
[2019-03-30] MEDS ORDERED: LORATADINE 10 MG TAB PO PRN (16:15)
[2019-03-30 17:07] LABS: AMPHETAMINES LEVEL URINE NEGATIVE (NEGATIVE); BARBITURATES URINE NEGATIVE (NEGATIVE); BENZODIAZEPINES URINE NEGATIVE (NEGATIVE); CANNABINOIDS URINE NEGATIVE (NEGATIVE); COCAINE METABOLITE URINE NEGATIVE (NEGATIVE); METHADONE URINE NEGATIVE (NEGATIVE); OPIATES URINE POSITIVE (NEGATIVE); PHENCYCLIDINE URINE NEGATIVE (NEGATIVE)
[2019-03-30 17:29] VITALS: BP 140/84
[2019-03-30] MEDS: NS 1,000 ML IV SCH (18:00)
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
[2019-03-30] MEDS: cefTRIAXone SOD 1 GM in D5W MINI-BAG PLUS 50 ML IV SCH (18:14)
[2019-03-30 20:45] VITALS: BP 138/71
[2019-03-30] MEDS ORDERED: guaiFENesin ER 600 MG TAB PO SCH (21:00)
[2019-03-30] MEDS: SENNA 8.6 MG TAB (SENOKOT) PO SCH (21:00)
[2019-03-30] MEDS ORDERED: BACLOFEN 10 MG TAB PO SCH (21:00)
[2019-03-30] MEDS: GABAPENTIN 100 MG CAP PO SCH (21:18)
[2019-03-30] MEDS: HEPARIN SOD (PORCINE) 5000 UNITS/ML VIAL SC SCH (21:19)
[2019-03-31 05:13] VITALS: BP 136/70
[2019-03-31] MEDS: ACETAMINOPHEN TAB 650MG DOSE (2X325MG) PO PRN (05:40)
[2019-03-31] MEDS: HEPARIN SOD (PORCINE) 5000 UNITS/ML VIAL SC SCH ×3 (05:40→20:20)
[2019-03-31] MEDS: LEVOTHYROXINE 137MCG TABLET (0.137MG) PO SCH (05:45)
[2019-03-31 07:00] LABS: HEMATOCRIT 33.9 % (42.0-52.0); HEMOGLOBIN 11.3 g/dl (13.5-17.5); MEAN CORPUSCULAR HEMOGLOBIN 33.1 pg (27.0-33.0); MEAN CORPUSCULAR HGB CONC 33.3 g/dl (32.0-36.5); MEAN CORPUSCULAR VOLUME 99.4 fl (80.0-96.0); PLATELET COUNT, AUTOMATED 276 10^3/uL (150-450); RED BLOOD COUNT 3.41 10^6/uL (4.30-6.10); WHITE BLOOD COUNT 5.4 10^3/uL (4.0-10.0)
[2019-03-31 07:21] LABS: BLOOD UREA NITROGEN 10 MG/DL (7-18); CALCIUM LEVEL 8.6 MG/DL (8.8-10.2); CARBON DIOXIDE LEVEL 25 MEQ/L (21-32); CHLORIDE LEVEL 107 MEQ/L (98-107); CREATININE FOR GFR 0.76 MG/DL (0.70-1.30); GLOMERULAR FILTRATION RATE > 60.0 (>42); GLUCOSE, FASTING 80 MG/DL (70-100); POTASSIUM SERUM 3.6 MEQ/L (3.5-5.1); SODIUM LEVEL 139 MEQ/L (136-145)
[2019-03-31] MEDS: VITAMIN D 1,000 INTERNATIONAL UNITS TABLET PO SCH (08:08)
[2019-03-31] MEDS: SENNA 8.6 MG TAB (SENOKOT) PO SCH ×3 (08:08→20:22)
[2019-03-31] MEDS: TAMSULOSIN 0.4 MG CAP PO SCH (08:08)
[2019-03-31] MEDS: FOLIC ACID 1 MG TAB PO SCH (08:08)
[2019-03-31] MEDS: CitaloPRAM (CeleXA) 20 MG TAB PO SCH (08:08)
[2019-03-31] MEDS: GABAPENTIN 100 MG CAP PO SCH ×3 (08:08→20:20)
[2019-03-31] MEDS ORDERED: ASPIRIN 81 MG ENTERIC TAB PO SCH (09:00)
[2019-03-31] MEDS ORDERED: PREVNAR 13 VACCINE SYRINGE (CPT CODE:90670) IM ONE (09:00)
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
[2019-03-31] MEDS: NS 1,000 ML IV SCH (11:43)
[2019-03-31 14:00] VITALS: BP 139/88
[2019-03-31] MEDS: cefTRIAXone SOD 1 GM in D5W MINI-BAG PLUS 50 ML IV SCH (17:24)
[2019-03-31 22:00] VITALS: BP 138/82
[2019-04-01] MEDS: ONDANSETRON 4MG/2ML VIAL (J2405) IV SCH ×3 (01:11→14:00)
[2019-04-01] MEDS ORDERED: diphenhydrAMINE INJ 50MG/ML VIAL (J1200) IV ONE (03:00)
[2019-04-01] MEDS: HEPARIN SOD (PORCINE) 5000 UNITS/ML VIAL SC SCH ×2 (05:23→14:00)
[2019-04-01] MEDS: LEVOTHYROXINE 137MCG TABLET (0.137MG) PO SCH (05:23)
[2019-04-01 05:57] LABS: HEMATOCRIT 33.1 % (42.0-52.0); HEMOGLOBIN 11.4 g/dl (13.5-17.5); MEAN CORPUSCULAR HEMOGLOBIN 33.6 pg (27.0-33.0); MEAN CORPUSCULAR HGB CONC 34.4 g/dl (32.0-36.5); MEAN CORPUSCULAR VOLUME 97.6 fl (80.0-96.0); PLATELET COUNT, AUTOMATED 263 10^3/uL (150-450); RED BLOOD COUNT 3.39 10^6/uL (4.30-6.10)
[2019-04-01 06:00] VITALS: BP 134/82
[2019-04-01] MEDS ORDERED: LevoFLOXacin 250 MG TABLET PO SCH (06:00)
[2019-04-01 06:28] LABS: BLOOD UREA NITROGEN 8 MG/DL (7-18); CALCIUM LEVEL 8.3 MG/DL (8.8-10.2); CARBON DIOXIDE LEVEL 23 MEQ/L (21-32); CHLORIDE LEVEL 106 MEQ/L (98-107); CREATININE FOR GFR 0.69 MG/DL (0.70-1.30); GLOMERULAR FILTRATION RATE > 60.0 (>42); GLUCOSE, FASTING 77 MG/DL (70-100); POTASSIUM SERUM 3.4 MEQ/L (3.5-5.1); SODIUM LEVEL 139 MEQ/L (136-145)
[2019-04-01] MEDS ORDERED: POTASSIUM CHLORIDE 10 MEQ SR TABLET PO ONE (07:15)
[2019-04-01] MEDS: FOLIC ACID 1 MG TAB PO SCH (08:44)
[2019-04-01] MEDS: VITAMIN D 1,000 INTERNATIONAL UNITS TABLET PO SCH (08:44)
[2019-04-01] MEDS: TAMSULOSIN 0.4 MG CAP PO SCH (08:44)
[2019-04-01] MEDS: GABAPENTIN 100 MG CAP PO SCH (08:44)
[2019-04-01] MEDS: CitaloPRAM (CeleXA) 20 MG TAB PO SCH (08:45)
[2019-04-01] MEDS: SENNA 8.6 MG TAB (SENOKOT) PO SCH (09:00)
--- NOTE | 2019-04-01 10:19 | IPNPDOC ---
Date Seen The patient was seen on 04/01/19. Progress Note SUBJECTIVE: Patient was seen and examined this morning laying comfortably in bed. He states he did have 2 episodes of loose to watery stools yesterday. He also reports another episode of watery stool this morning. He reports some abdominal bloating and discomfort, which is generalized and decreased appetite. Otherwise, he states he feels well. He denies any increased shortness of breath beyond his baseline from his lung cancer. He denies any exertional symptoms. OBJECTIVE: PHYSICAL EXAMINATION: VITAL SIGNS: Please see below. GENERAL: Alert, comfortable, in no acute distress HEENT: Normocephalic, atraumatic, PERRLA, EOMI, moist mucous membranes NECK: Supple, trachea midline, no thyromegaly, no JVD appreciated CARDIOVASCULAR: Regular rate and rhythm, normal S1 and S2. No murmurs, rubs, or gallops RESPIRATORY: Clear to auscultation bilaterally with equal air entry bilaterally. No wheezing, rhonchi, or rales. ABDOMEN: Soft, nontender, nondistended, bowel sounds present, no masses or hepatosplenomegaly appreciated EXTREMITIES: No cyanosis or edema. Pulses 2+/4 in bilateral upper and lower extremities NEUROLOGIC: Alert and oriented 3 to person, place and time. Cranial nerves 2-12 grossly intact. No focal deficits appreciated PSYCHIATRIC: Mood and affect appropriate LABORATORY DATA, IMAGING STUDIES, MICROBIOLOGY: Please see below. ASSESSMENT AND PLAN: 74-year-old male with a history of squamous cell lung cancer on Keytruda, multiple sclerosis, BPH, chronic anemia, and thyroiditis secondary to Keytruda use, who is admitted for altered mental status # Encephalopathy - possibly 2/2 medication side effects, held home [place], baclofen, and megestrol, decreased dose of home gabapentin - possibly 2/2 Keytruda use - ordered MRI to evaluate for metastatic disease, pt declined as he had an MRI in February 2019 which was negative for metastasis. - Infectious work up significant for UTI currently on antbiotics as below. blood cultures x2 negative at 24 hrs - etoh level negative, urine tox screen positive for opiates which pt is prescribed outpatient - speech cognitive eval performed, suggested 24/7 care on discharge - psychiatry consulted for further evaluation of mental status and determination of competency #UTI - UA significant for WBCs, bacteria, and leukocyte esterase - urine culture/sensitivities positive for enterococcus faecalis - antibiotic coverage switched to levaquin day #3 of 5 #diarrhea likely 2/2 gastroenteritis v. c diff - likely a viral gastroenteritis but considering his immunocompromised state, will check for c diff - continue supportive care. # Squamous cell lung CA, stage 4 metastatic - Currently on Keytruda outpatient # Multiple sclerosis - baclofen on hold for altered mental status # Chronic anemia - likely 2/2 chronic disease, no evidence of acute bleeding - monitor CBC daily # BPH - continue home medications DVT prophylaxis: heparin DISPOSITION: pending psych consult for capacity, placement for 02/11 care per speech cognitive evaluation VS, I&O, 24H, Fishbone Vital Signs/I&O Vital Signs Date Time Temp Pulse Resp B/P (MAP) Pulse Ox O2 Delivery O2 Flow Rate FiO2 04/01/19 06:00 99.1 84 19 134/82 (99) 98 Room Air I&O- Last 24 Hours up to 6 AM 04/01/19 05:59 Intake Total 1520 ml Output Total 450 ml Balance 1070 ml Laboratory Data 24H LABS Laboratory Tests 2 04/01/19 05:39: Nucleated Red Blood Cells % (auto) 0.0, Anion Gap 10, Glomerular Filtration Rate > 60.0, Calcium Level 8.3L CBC/BMP Laboratory Tests 04/01/19 05:39 Microbiology Microbiology 03/30/19 Urine Culture - Final, Complete Enterococcus Faecalis 03/30/19 Blood Culture - Preliminary, Resulted No growth after 24 hours . All specim... 03/30/19 Blood Culture - Preliminary, Resulted No growth after 24 hours . All specim... GME ATTESTATION GME ATTESTATION My faculty preceptor for this patient encounter was physically present during the encounter and was fully available. All aspects of the patient interview, examination, medical decision making process, and medical care plan development were reviewed and approved by the faculty preceptor. The faculty preceptor is aware and concurs with the plan as stated in the body of this note and will attest to such by his/her cosignature. ATTENDING NOTE Patient was seen and examined by me this morning with the residents. Agree with the above assessment and plan DOTTY ULRICH D.O. Apr 01, 2019 10:19 EDIN CORNELL MD Apr 01, 2019 15:46
[2019-04-01] MEDS: ACETAMINOPHEN TAB 650MG DOSE (2X325MG) PO PRN (11:18)
[2019-04-01 12:56] LABS: CLOSTRIDIUM DIFFICILE PCR NEGATIVE (NEGATIVE)
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
== END 2019-04-01 15:50 | disposition left against medical advice (07) | DRG 71 ==
LOC: M ED 10:18 → M ED INP 15:17 → M MS5PR 17:25
PROVIDERS: ADMIT Internal Medicine; ATTEND Internal Medicine
DX: G93.41 Metabolic encephalopathy (principal); C34.90 Malignant neoplasm of unspecified part of unspecified bronchus or lung; N39.0 Urinary tract infection, site not specified; G35 Multiple sclerosis; N40.1 Benign prostatic hyperplasia with lower urinary tract symptoms; R33.9 Retention of urine, unspecified; D64.9 Anemia, unspecified; E06.3 Autoimmune thyroiditis; F32.9 Major depressive disorder, single episode, unspecified; Z98.1 Arthrodesis status; Z90.49 Acquired absence of other specified parts of digestive tract; Z98.41 Cataract extraction status, right eye; Z98.42 Cataract extraction status, left eye; Z87.891 Personal history of nicotine dependence; Z79.82 Long term (current) use of aspirin; Z79.899 Other long term (current) drug therapy; B95.2 Enterococcus as the cause of diseases classified elsewhere; K52.9 Noninfective gastroenteritis and colitis, unspecified

== ENCOUNTER 2019-04-07 22:56 | Emergency (ER) | payer MEDICARE ==
[~2019-04-07] VITALS: Ht 180.3 cm; Wt 56.5 kg
[~2019-04-07 22:56] MED LIST changes: +ASPI81TA26 PO; +D-20TAB PO; +LEVO137T2 PO; +MUCI600T31 PO; +[UNRECOGNIZED DRUG - OTHER] PO
[2019-04-07 22:57] VITALS: BP 156/66
== END 2019-04-07 23:00 | disposition left against medical advice (07) ==
LOC: M ED 22:56
DX: Z53.21 Procedure and treatment not carried out due to patient leaving prior to being seen by health care provider (principal)

== ENCOUNTER 2019-04-10 02:09 | Emergency (ER) | payer MEDICARE ==
[~2019-04-10] VITALS: Ht 180.3 cm; Wt 54.5 kg
[2019-04-10 03:29] LABS: BASO % 0.5 % (0.0-1.0); EOS # 0.2 10^3/uL (0.0-0.5); EOS % 2.5 % (0.0-3.0); HEMATOCRIT 36.5 % (42.0-52.0); HEMOGLOBIN 11.9 g/dl (13.5-17.5); LYMPH # 1.9 10^3/uL (1.5-5.0); LYMPH % 29.4 % (24.0-44.0); MEAN CORPUSCULAR HEMOGLOBIN 32.9 pg (27.0-33.0); MEAN CORPUSCULAR HGB CONC 32.6 g/dl (32.0-36.5); MEAN CORPUSCULAR VOLUME 100.8 fl (80.0-96.0); MONO # 0.7 10^3/uL (0.0-0.8); MONO % 10.1 % (0.0-5.0); NEUTROPHILS # 3.7 10^3/uL (1.5-8.5); NEUTROPHILS % 57.2 % (36.0-66.0); PLATELET COUNT, AUTOMATED 295 10^3/uL (150-450); RED BLOOD COUNT 3.62 10^6/uL (4.30-6.10); WHITE BLOOD COUNT 6.4 10^3/uL (4.0-10.0)
[2019-04-10] MEDS ORDERED: MORPHINE 4 MG/ML 1ML VIAL/SYRINGE (J2270) IV ONE (04:00)
[2019-04-10] MEDS ORDERED: IPRATROPIUM 0.5MG/ALBUTEROL 2.5MG INH SOL UD 3ML (DUONEB)(J7620) NEB ONE (04:00)
[2019-04-10 04:11] LABS: ALBUMIN 3.5 GM/DL (3.2-5.2); ALT/SGPT 14 U/L (12-78); BILIRUBIN,DIRECT 0.2 MG/DL (0.0-0.2); BILIRUBIN,TOTAL 0.7 MG/DL (0.2-1.0); CK-MB VALUE MASS < 1.0 NG/ML (<3.6); CPK CREATINE PHOSPHOKINASE 78 U/L (39-308); MB/CK RELATIVE INDEX 1.28 (< OR =4); NT-PRO BNP 177 PG/ML (<450); THYROXINE (T4) 11.7 UG/DL (4.5-12.0); TOTAL PROTEIN 6.7 GM/DL (6.4-8.2); TROPONIN I < 0.02 NG/ML (< 0.10)
[2019-04-10 05:25] VITALS: BP 139/71
--- NOTE | 2019-04-10 07:47 | REP ---
Clinical: Cough and dyspnea . Comparison: 03/30/2019 . Findings: The mediastinum and cardiac silhouette are stable and within normal limits for portable technique. Cnwrxm-F-Bngw with tip in the SVC again noted. The lung mcnair demonstrate diffuse chronic changes without acute consolidation, effusion, or pneumothorax. Skeletal structures are intact. Impression: No acute cardiopulmonary process appreciated. Electronically Signed by Itz Wilkes MD 04/10/2019 07:38 A
--- NOTE | 2019-04-10 10:05 | ECGEPIP ---
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
[2019-04-13] MEDS ORDERED: CELE20TA PO (11:05)
== END 2019-04-10 05:26 | disposition home or self-care (01) ==
LOC: M ED 02:09
DX: C34.90 Malignant neoplasm of unspecified part of unspecified bronchus or lung (principal); R45.7 State of emotional shock and stress, unspecified; J44.9 Chronic obstructive pulmonary disease, unspecified; Z87.891 Personal history of nicotine dependence; Z79.82 Long term (current) use of aspirin; Z79.899 Other long term (current) drug therapy
CPT/HCPCS: 71045; 80047; 80076; 82550; 82553; 83605; 83880; 84436; 84443; 84484; 85025; 87040; 93005; 93041; 94760; 96374; 99284; J2270

== ENCOUNTER → 2019-04-14 | Outpatient (CLI) | payer MEDICARE ==
[~2019-04-14] MED LIST changes: +GASTROGRAFIN SOLUTION 30ML (Q9963) As Ordered ONE; +ISOVUE-370 76% 100ML VIAL (Q9967) As Ordered ONE
--- NOTE | 2019-04-14 12:21 | REP ---
CT brain: 04/14/2019. Indication: Small cell lung carcinoma. Metastatic workup. Comparison: 03/30/2019. Technique: Axial images of the brain were obtained from skull base to vertex including post contrast images. 100 ml IV Isovue 370 were administered. Findings: There is no acute intracranial hemorrhage, acute cortical infarction, mass effect, hydrocephalus or intracranial pathologic contrast enhancement. Volume loss, chronic right basal ganglia lacunar infarction and sequelae of chronic microangiopathic ischemic disease are present. Impression: No acute intracranial process or evidence of intracranial metastatic disease. Electronically Signed by Daniele Guerra DO 04/14/2019 12:13 P
--- NOTE | 2019-04-14 13:27 | REP ---
Small cell lung cancer. Follow-up. Technique: Axial contrast enhanced images from the thoracic inlet to the upper abdomen with coronal and sagittal re-formations using 100 ml Isovue 370 intravenous contrast material. Comparison: 02/09/2019. Findings: A 3.0 cm mass in the right middle lobe remains unchanged. The lung mcnair demonstrate diffuse chronic interstitial changes and scattered scarring along with bronchiectasis which remain stable. No new acute consolidation, nodule, or mass lesion. No effusion. No pneumothorax. No significant adenopathy identified. Thoracic aorta, pulmonary vasculature and heart/pericardium appear relatively normal / stable. The musculoskeletal structures are intact and without focal osseous abnormality. Impression: 1. Stable right middle lobe mass and stable diffuse chronic interstitial changes / scarring. No evidence for progression of disease. 2. No new acute process appreciated. Electronically Signed by Itz Wilkes MD 04/14/2019 01:19 P
--- NOTE | 2019-04-14 13:49 | REP ---
Clinical: Small cell lung cancer. Restaging. Technique: Axial contrast enhanced images from the lung bases to the pubic symphysis using oral (per protocol) and 100 ml Isovue 370 intravenous contrast material with coronal and sagittal re-formations. Delayed images of the abdomen obtained. Findings: Please refer to chest CT report for complete evaluation of the lung mcnair. Evidence for prior cholecystectomy with compensatory biliary ductal dilatation. Liver, spleen, pancreas, bilateral adrenal glands and kidneys are normal. The enteric system is without obstruction or acute inflammatory process. Moderate fecal stasis is suggested. A 1.8 cm appendicolith at the appendiceal tip noted. Pelvis demonstrates bladder calcifications and findings to suggest prior prostate surgery. No ascites. No adenopathy. Atherosclerotic changes to the aorta and vasculature without aneurysm or dissection. Musculoskeletal structures demonstrate degenerative changes without focal abnormality. Impression: 1. No acute abdominal pelvic pathology. No ascites. No adenopathy. No focal inflammatory stranding. 2. Cholecystectomy with compensatory biliary ductal dilatation. 3. Bladder calcifications. 4. Appendicolith. Electronically Signed by Itz Wilkes MD 04/14/2019 01:40 P
== END ==
LOC: M RAD 09:57
PROVIDERS: ATTEND Internal Medicine Medical Oncology
DX: C34.90 Malignant neoplasm of unspecified part of unspecified bronchus or lung (principal)
CPT/HCPCS: 70470; 71260; 74177; Q9963; Q9967

== ENCOUNTER 2019-04-18 14:37 | Inpatient (IN) | payer MEDICARE ==
[~2019-04-18] VITALS: Ht 180.3 cm; Wt 51.1 kg
[~2019-04-18 14:37] MED LIST changes: -GASTROGRAFIN SOLUTION 30ML (Q9963) As Ordered ONE; -ISOVUE-370 76% 100ML VIAL (Q9967) As Ordered ONE
--- NOTE | 2019-04-18 17:20 | REPVR ---
PROCEDURE INFORMATION: Exam: CT Thoracic Spine Without Contrast Exam date and time: 04/18/2019 5:04 PM Age: 74 years old Clinical indication: Injury or trauma; Fall; Initial encounter; Blunt trauma (contusions or hematomas); Additional info: Fall/pain TECHNIQUE: Imaging protocol: Computed tomography images of the thoracic spine without contrast. Radiation optimization: All CT scans at this facility use at least one of these dose optimization techniques: automated exposure control; mA and/or kV adjustment per patient size (includes targeted exams where dose is matched to clinical indication); or iterative reconstruction. COMPARISON: No relevant prior studies available. FINDINGS: Tubes, catheters and devices: Tip of central venous line located in the superior vena cava just above the superior cavoatrial junction. Vertebrae: No acute fracture. Normal alignment. Discs/Spinal canal/Neural foramina: The spine demonstrates mild degenerative changes. Soft tissues: Unremarkable. Lungs: Infiltrate in the right pulmonary apex may be chronic. Correlation with prior thoracic CT exam suggested (images currently not available). IMPRESSION: Mild degenerative changes. No acute findings. Electronically signed by: Salvador Morales On 04/18/2019 17:20:25 PM
--- NOTE | 2019-04-18 17:25 | REPVR ---
PROCEDURE INFORMATION: Exam: CT Lumbar Spine Without Contrast Exam date and time: 04/18/2019 5:04 PM Age: 74 years old Clinical indication: Injury or trauma; Fall; Initial encounter; Blunt trauma (contusions or hematomas); Additional info: Fall/pain TECHNIQUE: Imaging protocol: Computed tomography images of the lumbar spine without contrast. Radiation optimization: All CT scans at this facility use at least one of these dose optimization techniques: automated exposure control; mA and/or kV adjustment per patient size (includes targeted exams where dose is matched to clinical indication); or iterative reconstruction. COMPARISON: No relevant prior studies available. FINDINGS: Vertebrae: Normal alignment. There are 5 qoj-zbw-ziraazo mobile lumbar segments. Discs/Spinal canal/Neural foramina: There is a moderate central spinal stenosis L4-L5 secondary to diffuse annular bulging, thickened ligamentum flavum with facet joint arthropathy. Gallbladder and bile ducts: There has been a cholecystectomy. Vasculature: Atherosclerotic changes in the abdominal aorta. No aneurysm. Soft tissues: Unremarkable. IMPRESSION: 1. There has been a cholecystectomy. 2. Moderate central spinal stenosis L4-L5. 3. No acute findings. Electronically signed by: Salvador Morales On 04/18/2019 17:24:51 PM
--- NOTE | 2019-04-18 17:55 | REP ---
Left rib series: Five views including PA chest. History: Bruising and pain after a fall. Comparison study: April 10, 2019. Findings: PA chest radiograph demonstrates an Knbzkn-F-Rksm catheter in place unchanged in appearance or position. There is no evidence of pneumothorax or hydrothorax. There is some chronic pleural thickening along the right lateral chest wall. Diffuse osteopenia is noted. Heart is not enlarged. No infiltrate is seen. Multiple views of the left rib cage show no rib fracture or bony destructive lesion. Impression: No rib fracture seen. Nkzhjj-D-Slii catheter in place. Otherwise no acute disease. Electronically Signed by David Bethea MD 04/18/2019 06:24 P
[2019-04-18] MEDS ORDERED: LORATADINE 10 MG TAB PO PRN (19:15)
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
[2019-04-18 19:55] VITALS: BP 127/73
[2019-04-18] MEDS: NORCO, ANEXSIA 5/325MG TABLET (HYDROcodone/ACETAMINOPHEN) PO PRN (20:23)
[2019-04-18] MEDS: GABAPENTIN 300 MG CAP PO SCH (20:23)
[2019-04-18] MEDS: BACLOFEN 10 MG TAB PO SCH (20:24)
[2019-04-18] MEDS: guaiFENesin ER 600 MG TAB PO SCH (20:24)
[2019-04-18] MEDS ORDERED: SENNA 8.6 MG TAB (SENOKOT) PO SCH (21:00)
[2019-04-18] MEDS: RAMELTEON 8 MG TAB (ROZEREM) PO SCH (21:00)
[2019-04-18] MEDS: LIDOCAINE 5% (LIDODERM) PATCH TD SCH (21:42)
[2019-04-19] MEDS: NORCO, ANEXSIA 5/325MG TABLET (HYDROcodone/ACETAMINOPHEN) PO PRN ×2 (05:09→14:33)
[2019-04-19] MEDS: LEVOTHYROXINE 137MCG TABLET (0.137MG) PO SCH (05:10)
[2019-04-19 06:00] VITALS: BP 128/71
[2019-04-19 06:08] LABS: HEMATOCRIT 36.9 % (42.0-52.0); HEMOGLOBIN 11.7 g/dl (13.5-17.5); MEAN CORPUSCULAR HEMOGLOBIN 32.8 pg (27.0-33.0); MEAN CORPUSCULAR HGB CONC 31.7 g/dl (32.0-36.5); MEAN CORPUSCULAR VOLUME 103.4 fl (80.0-96.0); PLATELET COUNT, AUTOMATED 263 10^3/uL (150-450); RED BLOOD COUNT 3.57 10^6/uL (4.30-6.10); WHITE BLOOD COUNT 5.6 10^3/uL (4.0-10.0)
[2019-04-19 06:28] LABS: BLOOD UREA NITROGEN 17 MG/DL (7-18); CALCIUM LEVEL 8.9 MG/DL (8.8-10.2); CARBON DIOXIDE LEVEL 26 MEQ/L (21-32); CHLORIDE LEVEL 109 MEQ/L (98-107); GLOMERULAR FILTRATION RATE > 60.0 (>42); GLUCOSE, FASTING 93 MG/DL (70-100); POTASSIUM SERUM 3.9 MEQ/L (3.5-5.1); SODIUM LEVEL 141 MEQ/L (136-145)
[2019-04-19] MEDS ORDERED: ENOXAPARIN 30 MG/0.3 ML SYR (J1650) SC SCH (09:00)
[2019-04-19] MEDS: TAMSULOSIN 0.4 MG CAP PO SCH (09:53)
[2019-04-19] MEDS: guaiFENesin ER 600 MG TAB PO SCH ×2 (09:53→21:00)
[2019-04-19] MEDS: GABAPENTIN 300 MG CAP PO SCH ×3 (09:53→21:00)
[2019-04-19] MEDS: CitaloPRAM (CeleXA) 20 MG TAB PO SCH (09:53)
[2019-04-19] MEDS: FOLIC ACID 1 MG TAB PO SCH (09:53)
[2019-04-19] MEDS: ASPIRIN 81 MG ENTERIC TAB PO SCH (09:53)
[2019-04-19] MEDS: SENNA 8.6 MG TAB (SENOKOT) PO SCH ×2 (09:54→21:00)
[2019-04-19] MEDS: BACLOFEN 10 MG TAB PO SCH ×2 (09:54→21:00)
[2019-04-19] MEDS: **NOTE PATIENT COMMENT** MISC XX SCH (09:54)
[2019-04-19] MEDS: VITAMIN D 1,000 INTERNATIONAL UNITS TABLET PO SCH (09:54)
[2019-04-19] MEDS: MEGESTROL 400MG 10ML SUSP ORAL SYRINGE *DRAW UP EXACT DOSE PO SCH (11:45)
[2019-04-19] MEDS ORDERED: LORazepam 2 MG/ML VIAL (J2060) IV ONE (13:45)
[2019-04-19 14:00] VITALS: BP 135/65
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
[2019-04-19] MEDS ORDERED: PROHANCE 279.3MG/ML 5ML VIAL (A9576) As Ordered ONE (20:02)
--- NOTE | 2019-04-19 20:52 | REPVR ---
PROCEDURE INFORMATION: Exam: MR Cervical Spine Without and With Contrast Exam date and time: 04/19/2019 5:58 PM Age: 74 years old Clinical indication: Weakness; Patient HX: HX ms and lung CA; Additional info: Ms and lung CA with new deficits TECHNIQUE: Imaging protocol: Multiplanar magnetic resonance images of the cervical spine without and with intravenous contrast. Contrast material: PROHANCE; Contrast volume: 10 ml; Contrast route: IV; COMPARISON: CT Spine,cervical w/o contrast 03/30/2019 11:12 AM FINDINGS: Nonspecific reversal of the cervical lordosis. Vertebral body height and AP alignment is preserved. Multilevel disc desiccation. No evidence of discitis/osteomyelitis. There is increased cord signal at C6 with associated cord thinning. No epidural fluid collection. No pathologic intrathecal enhancement. Previous laminectomy involving C4, C5 and C6. C2-C3: No central canal stenosis. Moderate left-sided foraminal stenosis secondary predominantly to facet joint arthropathy. C3-C4: Mild disc osteophyte complex with bilateral uncinate spurring. No significant central canal stenosis. There is moderate bilateral foraminal stenosis. C4-C5: Mild disc osteophyte complex with left greater than right uncinate spurring. No central canal stenosis. There is moderate left foraminal stenosis. C5-C6: No significant central canal stenosis. There is bilateral uncinate spurring contributing to mild right and pygu-fq-tdaxxpkd left foraminal stenosis. C6-C7: No significant central canal stenosis. Mild uncinate spurring bilaterally without significant central canal stenosis. C7-T1: Mild disc osteophyte complex and bilateral uncinate spurring. No significant central canal stenosis. There is moderate to moderate bilateral foraminal stenosis. IMPRESSION: 1. No acute abnormality. 2. 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 3. No significant central canal compromise. Electronically signed by: Joao Castillo On 04/19/2019 20:52:22 PM
--- NOTE | 2019-04-19 20:57 | REPVR ---
PROCEDURE INFORMATION: Exam: MR Head Without and With Contrast Exam date and time: 04/19/2019 2:18 PM Age: 74 years old Clinical indication: Altered mental status/memory loss; Confusion or disorientation; Additional info: AMS with HX of ms, lung CA and fmhx of cjd TECHNIQUE: Imaging protocol: MR of the head without and with intravenous contrast. 3D rendering: MIP and/or 3D reconstructed images were created by the technologist. Contrast material: PROHANCE; Contrast volume: 10 ml; Contrast route: IV; COMPARISON: CT Head W/O FOLL BY WITH CONTR 04/14/2019 11:52 AM FINDINGS: Age-related volume loss. Major vascular flow voids at the skull base are preserved. No extra-axial fluid collection. No midline shift or intracranial mass effect. There is mild nonspecific white matter gliosis. No cerebral edema. No diffusion restriction. No pathologic intracranial enhancement. Minimal paranasal sinus disease. No mastoid effusion. IMPRESSION: 1. No acute intracranial abnormality. 2. Nonspecific white matter gliosis, chronic microvascular ischemia versus provided history of MS. Electronically signed by: Joao Castillo On 04/19/2019 20:57:16 PM
[2019-04-19] MEDS: RAMELTEON 8 MG TAB (ROZEREM) PO SCH (21:00)
[2019-04-19] MEDS: LIDOCAINE 5% (LIDODERM) PATCH TD SCH (21:00)
[2019-04-19 22:00] VITALS: BP 128/75
[2019-04-20] MEDS: NORCO, ANEXSIA 5/325MG TABLET (HYDROcodone/ACETAMINOPHEN) PO PRN ×2 (03:13→21:00)
[2019-04-20] MEDS: LEVOTHYROXINE 137MCG TABLET (0.137MG) PO SCH (05:53)
[2019-04-20 06:00] VITALS: BP 107/71
[2019-04-20] MEDS: BACLOFEN 10 MG TAB PO SCH ×2 (08:00→20:59)
[2019-04-20] MEDS: VITAMIN D 1,000 INTERNATIONAL UNITS TABLET PO SCH (08:00)
[2019-04-20] MEDS: ASPIRIN 81 MG ENTERIC TAB PO SCH (08:00)
[2019-04-20] MEDS: MEGESTROL 400MG 10ML SUSP ORAL SYRINGE *DRAW UP EXACT DOSE PO SCH (08:00)
[2019-04-20] MEDS: CitaloPRAM (CeleXA) 20 MG TAB PO SCH (08:01)
[2019-04-20] MEDS: TAMSULOSIN 0.4 MG CAP PO SCH (08:01)
[2019-04-20] MEDS: FOLIC ACID 1 MG TAB PO SCH (08:01)
[2019-04-20] MEDS: GABAPENTIN 300 MG CAP PO SCH ×3 (08:01→21:00)
[2019-04-20] MEDS: **NOTE PATIENT COMMENT** MISC XX SCH (08:01)
[2019-04-20] MEDS: guaiFENesin ER 600 MG TAB PO SCH ×2 (08:01→20:59)
[2019-04-20] MEDS: SENNA 8.6 MG TAB (SENOKOT) PO SCH ×2 (08:01→21:01)
[2019-04-20 08:50] LABS: HEMATOCRIT 35.8 % (42.0-52.0); HEMOGLOBIN 11.9 g/dl (13.5-17.5); MEAN CORPUSCULAR HEMOGLOBIN 33.7 pg (27.0-33.0); MEAN CORPUSCULAR HGB CONC 33.2 g/dl (32.0-36.5); MEAN CORPUSCULAR VOLUME 101.4 fl (80.0-96.0); PLATELET COUNT, AUTOMATED 268 10^3/uL (150-450); RED BLOOD COUNT 3.53 10^6/uL (4.30-6.10); WHITE BLOOD COUNT 5.5 10^3/uL (4.0-10.0)
[2019-04-20 09:06] LABS: BLOOD UREA NITROGEN 20 MG/DL (7-18); CALCIUM LEVEL 8.8 MG/DL (8.8-10.2); CARBON DIOXIDE LEVEL 26 MEQ/L (21-32); CHLORIDE LEVEL 108 MEQ/L (98-107); CREATININE FOR GFR 0.79 MG/DL (0.70-1.30); FREE T4 1.97 NG/DL (0.76-1.46); GLOMERULAR FILTRATION RATE > 60.0 (>42); GLUCOSE, FASTING 90 MG/DL (70-100); SODIUM LEVEL 141 MEQ/L (136-145); THYROID STIMULATING HORMONE 0.524 uIU/ML (0.358-3.740)
[2019-04-20] MEDS ORDERED: LORazepam 2 MG/ML VIAL (J2060) IV ONE (10:00)
[2019-04-20 11:29] LABS: FOLATE > 24.0 NG/ML; VITAMIN B12 LEVEL 348 PG/ML
[2019-04-20 14:00] VITALS: BP 140/68
--- NOTE | 2019-04-20 14:06 | IPNPDOC ---
Text Note Date of Service The patient was seen on 04/20/19. NOTE Subjective: -This morning, he fell trying to get out of bed. Came into the room while he was still down, with no new pain complaints, did not hit head, exam stable (see below). Stood up with help on each side and walked back to bed. -Improved back pain Interim events: -Had brain and C spine MRIs -Neurology consulted -PFS consulted -PT consulted -Mid-afternoon was called to bed side as he was getting agitated and asking to sign out of the hospital now to be discharged home. He cleared did not have the mental capacity or the physical well being to be discharged home at this time. So I asked for a parallel evaluation by Dr. Pierre in order to document the medical certification certifying that he needs involuntary care and treatment at this time and does not have capacity to sign out AMA. Objective: VITAL SIGNS: Please see below. Hemodynamically stable and afebrile GEN: Cachectic, NAD, sitting up in bed, speaking in full sentences while on room air INTEGUMENT: not flushed, not jaundiced HEENT: NCAT, PERRLA, EOMI, MMM CVS: RRR, no mrg LUNGS: Able to speak in full sentences, CTAB ABDOMEN: Scaphoid, non distended, non tender. MSK/EXTREMITIES: Range of motion appears intact in all 4 extremities while supine, no LE edema, WWP NEURO: CN 2-12 grossly intact, speech is not dysarthric, able to repeat questions but unable to express consequences of discharge, poor risk assessment and inconsistent, 5/5 strength orientation and identifiers of family members. Also very limited short term memory, 0/3 5 minute recall. PSYCH: AOx3 this AM Capacity evaluation: Orientation: 1. To self 2. Knows and age 3. Knows his children but confuses them with siblings 4. Knows this is a hospital but cannot name [facility] 5 minute recall: 0 out of 3 objects Clinical scenario: Knows his history of MS, knows his history of metastatic lung CA, aware of Keytruda. Acknowledges frequent falls Asked to express request that is not being met: 1. I want to go home 2. Cannot corroborate where home is 3. Cannot give address 4. Cannot detail who he lives with or whose home it is. Asked the consequences of discharge against medical advice: 1. Initially expressed that he knows that he will fall many times and there is nothing to do about that. Then later said that he would not fall and would be careful. 2. Could not explain back to me why it would be unsafe to leave AMA Dr. Pierre was present during assessment and is in agreement that the patient does not have capacity to make medical decisions or otherwise at this time. We therefore completed documentation that is now in his physical chart that he is involuntarily admitted into the hospital until a safe discharge plan can be made in agreement with his POA who is his . I called her and updated her of this development and decision and she was in agreement. LABORATORY DATA: 04/19 labs Reviewed. 04/20 labs pending IMAGING: CT thoracic spine: Mild degenerative changes. No acute findings. X-ray ribs: No rib fracture seen. Ntyofq-I-Krdd catheter in place. Otherwise no acute disease. CT lumbar spine: 1. There has been a cholecystectomy. 2. Moderate central spinal stenosis L4-L5. 3. No acute findings. MRI Brain: Age-related volume loss. Major vascular flow voids at the skull base are preserved. No extra-axial fluid collection. No midline shift or intracranial mass effect. There is mild nonspecific white matter gliosis. No cerebral edema. No diffusion restriction. No pathologic intracranial enhancement. Minimal paranasal sinus disease. No mastoid effusion. IMPRESSION: 1. No acute intracranial abnormality. 2. Nonspecific white matter gliosis, chronic microvascular ischemia versus provided history of MS. C-spine MRI: Nonspecific reversal of the cervical lordosis. Vertebral body height and AP alignment is preserved. Multilevel disc desiccation. No evidence of discitis/ osteomyelitis. There is increased cord signal at C6 with associated cord thinning. No epidural fluid collection. No pathologic intrathecal enhancement. Previous laminectomy involving C4, C5 and C6. C2-C3: No central canal stenosis. Moderate left-sided foraminal stenosis secondary predominantly to facet joint arthropathy. C3-C4: Mild disc osteophyte complex with bilateral uncinate spurring. No significant central canal stenosis. There is moderate bilateral foraminal stenosis. C4-C5: Mild disc osteophyte complex with left greater than right uncinate spurring. No central canal stenosis. There is moderate left foraminal stenosis. C5-C6: No significant central canal stenosis. There is bilateral uncinate spurring contributing to mild right and [id number] left foraminal stenosis. C6-C7: No significant central canal stenosis. Mild uncinate spurring bilaterally without significant central canal stenosis. C7-T1: Mild disc osteophyte complex and bilateral uncinate spurring. No significant central canal stenosis. There is moderate to moderate bilateral foraminal stenosis. IMPRESSION: 1. No acute abnormality. 2. 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 3. No significant central canal compromise. MICROBIOLOGY: Please see below. ASSESSMENT: 74 yo M stage IV squamous cell lung cancer on pembro for 2y Q3W, multiple sclerosis, autoimmune thyroiditis, BPH, depression, chronic anemia, and unsteady gait who is admitted for evaluation of lower back pain and acute cognitive decline with paranoid delusions and visual hallucinations on chronic cognitive decline. PLAN: 1. AMS: Slow decline over 2y since starting Pembro followed by acute AMS in the last 2 weeks since mid 03/2019 with behavioral changes, paranoid delusions, impulsivity and reported visual hallucinations. -recent head CT on 04/14 with no acute changes -Recent infectious work up was notable for UTI that was treated to completion. Now admitted with no infectious signs, hemodynamically stable, afebrile -Strong family history of CJD in mother and brother -Brain MRI without acute pathology, mass effect, bleeding or acute enhancement -Neurology consulted --> recommended MRI brain and total spine, will follow up recs -Acute on chronic AMS with behavioral changes, paranoid delusions and hallucinations unlikely to be 2/2 Keytruda that he has been on for 2 years. -Though unlikely, will keep in mind the strong family history of CJD, though unl ikely in this elderly host -Currently two physician certified for involuntary admission and cannot sign out AMA 2. Subacute back pain w/ noted RLE on initial exam, with daughter reporting chronic left sided weakness? and history of recurrent falls -follow up MRI of total spine (so far C-spine was done with known sequeale of prior laminectomy and focal cord myelomalacia at C6) -Neurology consulted, pending completion of imaging and recs -continue baclofen & gabapentin, lidocaine patch -PT/OT consult -SW and PFS consult to discuss possible placement 3. Stage IV squamous cell PDL 1 positive lung cancer -Will FYI Dr. Fernanda Muro, I believe the pembro is on hold? -continue megase 4. Autoimmune thyroiditis: recently elevated TSH and free T4, on synthroid -home Levothyroxine -Repeat labs 5. Depression -Continue citalopram 6. Protein Vinay Malnutrition: BMI 16. -continue megace -regular diet, unrestricted, with ensure onboard DVT PROPHYLAXIS: SCDs DISPOSITION:Possible placement after more than 2 minute's nights stay. Pending PT and neurology consult. PFS secured bed at [facility], will likely be [facility]. VS,Fishbone, I+O VS, Fishbone, I+O Vital Signs Date Time Temp Pulse Resp B/P (MAP) Pulse Ox O2 Delivery O2 Flow Rate FiO2 04/20/19 06:00 97.2 78 16 107/71 (83) 98 Room Air I&O- Last 24 Hours up to 6 AM 04/20/19 06:00 Intake Total 600 ml Output Total 950 ml Balance -350 ml DELFINO MARQUEZ MD Apr 20, 2019 08:34
--- NOTE | 2019-04-20 20:57 | REPVR ---
PROCEDURE INFORMATION: Exam: MR Lumbar Spine Without Contrast. Exam date and time: 04/20/2019 8:28 PM Age: 74 years old Clinical indication: Low back pain; Patient HX: Best images possible, PT confused and unable to remain still. ; Additional info: AMS with HX of ms, lung CA and fmhx of cjd TECHNIQUE: Imaging protocol: Multiplanar magnetic resonance images of the lumbar spine without intravenous contrast. COMPARISON: CT Spine, lumbar w/o contrast 2019-04-18 16:54 FINDINGS: Limitations: Motion artifact does moderately limit the sensitivity of this examination. Vertebrae: Straightened lumbar curvature with normal vertebral body heights and marrow signal. 3 mm degenerative L4-L5 retrolisthesis. Spinal cord: Normal signal. No cord compression. L1-L2: No significant disc disease. No significant spinal canal or neural foraminal stenosis. L2-L3: No significant disc disease. No significant spinal canal or neural foraminal stenosis. L3-L4: Mild disc bulging with minimal foraminal narrowing. L4-L5: Mild/moderate facet arthropathy. Degenerative disc desiccation with mild disc height loss and a diffuse annular disc bulge causing mild to moderate right and mild left foraminal and spinal stenosis. L5-S1: No significant disc disease. No significant spinal canal or neural foraminal stenosis. Soft tissues: Unremarkable. IMPRESSION: 1. Mild lumbar spondylosis. 2. Despite absence of contrast, no evidence for metastatic disease. Electronically signed by: Colby Sawant On 04/20/2019 20:57:01 PM
[2019-04-20] MEDS: RAMELTEON 8 MG TAB (ROZEREM) PO SCH (20:59)
[2019-04-20] MEDS: LIDOCAINE 5% (LIDODERM) PATCH TD SCH (21:01)
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
[2019-04-20 22:00] VITALS: BP 107/65
[2019-04-21 06:00] VITALS: BP 128/67
[2019-04-21 06:35] LABS: HEMATOCRIT 32.2 % (42.0-52.0); HEMOGLOBIN 10.8 g/dl (13.5-17.5); MEAN CORPUSCULAR HEMOGLOBIN 33.4 pg (27.0-33.0); MEAN CORPUSCULAR HGB CONC 33.5 g/dl (32.0-36.5); MEAN CORPUSCULAR VOLUME 99.7 fl (80.0-96.0); PLATELET COUNT, AUTOMATED 269 10^3/uL (150-450); RED BLOOD COUNT 3.23 10^6/uL (4.30-6.10); WHITE BLOOD COUNT 4.5 10^3/uL (4.0-10.0)
[2019-04-21] MEDS: LEVOTHYROXINE 137MCG TABLET (0.137MG) PO SCH (06:39)
[2019-04-21 07:04] LABS: BLOOD UREA NITROGEN 19 MG/DL (7-18); CALCIUM LEVEL 8.4 MG/DL (8.8-10.2); CARBON DIOXIDE LEVEL 25 MEQ/L (21-32); CHLORIDE LEVEL 110 MEQ/L (98-107); CREATININE FOR GFR 0.68 MG/DL (0.70-1.30); GLOMERULAR FILTRATION RATE > 60.0 (>42); GLUCOSE, FASTING 94 MG/DL (70-100); POTASSIUM SERUM 3.7 MEQ/L (3.5-5.1); SODIUM LEVEL 141 MEQ/L (136-145)
[2019-04-21] MEDS ORDERED: LIDO5TD TD (08:43)
[2019-04-21] MEDS: VITAMIN D 1,000 INTERNATIONAL UNITS TABLET PO SCH (09:44)
[2019-04-21] MEDS: CitaloPRAM (CeleXA) 20 MG TAB PO SCH (09:45)
[2019-04-21] MEDS: TAMSULOSIN 0.4 MG CAP PO SCH (09:45)
[2019-04-21] MEDS: ASPIRIN 81 MG ENTERIC TAB PO SCH (09:45)
[2019-04-21] MEDS: GABAPENTIN 300 MG CAP PO SCH (09:45)
[2019-04-21] MEDS: guaiFENesin ER 600 MG TAB PO SCH (09:45)
[2019-04-21] MEDS: SENNA 8.6 MG TAB (SENOKOT) PO SCH (09:45)
[2019-04-21] MEDS: BACLOFEN 10 MG TAB PO SCH (09:45)
[2019-04-21] MEDS: FOLIC ACID 1 MG TAB PO SCH (09:45)
[2019-04-21] MEDS: **NOTE PATIENT COMMENT** MISC XX SCH (09:46)
[2019-04-21] MEDS: MEGESTROL 400MG 10ML SUSP ORAL SYRINGE *DRAW UP EXACT DOSE PO SCH (09:46)
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
[2019-04-21 14:00] VITALS: BP 107/56
[2019-04-24 00:06] LABS: Methylmalonic Acid 173 nmol/L (0-378)
== END 2019-04-21 13:54 | DRG 57 ==
LOC: M ED 14:37 → M ED INP 18:45 → ENRESERV 19:01 → M MSPAV 19:53
PROVIDERS: ADMIT General Practice; ATTEND Internal Medicine
DX: G31.09 Other frontotemporal neurocognitive disorder (principal); C34.90 Malignant neoplasm of unspecified part of unspecified bronchus or lung; E46 Unspecified protein-calorie malnutrition; Z68.1 Body mass index [BMI] 19.9 or less, adult; M50.00 Cervical disc disorder with myelopathy, unspecified cervical region; M54.9 Dorsalgia, unspecified; E06.3 Autoimmune thyroiditis; G35 Multiple sclerosis; R29.6 Repeated falls; N40.0 Benign prostatic hyperplasia without lower urinary tract symptoms; D64.9 Anemia, unspecified; F32.9 Major depressive disorder, single episode, unspecified; Z79.899 Other long term (current) drug therapy; Z79.82 Long term (current) use of aspirin; Z87.891 Personal history of nicotine dependence

== ENCOUNTER → 2019-06-02 | Outpatient (REF) | payer MEDICARE ==
[~2019-06-02] MED LIST changes: +LIDO5TD TD; +ONDA8TAB10 PO; -ONDA8TAB7 PO
== END ==
LOC: SKLAB7 14:05
PROVIDERS: ATTEND Internal Medicine
DX: R50.9 Fever, unspecified (principal); R53.83 Other fatigue; R35.0 Frequency of micturition

== ENCOUNTER → 2019-06-12 | Outpatient (REF) | payer MEDICARE ==
[2019-06-12 15:49] LABS: BASO % 0.5 % (0.0-1.0); EOS # 0.6 10^3/uL (0.0-0.5); EOS % 8.3 % (0.0-3.0); HEMATOCRIT 35.3 % (42.0-52.0); HEMOGLOBIN 11.7 g/dl (13.5-17.5); LYMPH # 1.5 10^3/uL (1.5-5.0); LYMPH % 21.9 % (24.0-44.0); MEAN CORPUSCULAR HEMOGLOBIN 32.5 pg (27.0-33.0); MEAN CORPUSCULAR HGB CONC 33.1 g/dl (32.0-36.5); MEAN CORPUSCULAR VOLUME 98.1 fl (80.0-96.0); MONO # 0.6 10^3/uL (0.0-0.8); MONO % 9.7 % (0.0-5.0); NEUTROPHILS # 3.9 10^3/uL (1.5-8.5); NEUTROPHILS % 59.3 % (36.0-66.0); PLATELET COUNT, AUTOMATED 276 10^3/uL (150-450); WHITE BLOOD COUNT 6.6 10^3/uL (4.0-10.0)
[2019-06-12 16:18] LABS: BLOOD UREA NITROGEN 23 MG/DL (7-18); CALCIUM LEVEL 8.8 MG/DL (8.8-10.2); CARBON DIOXIDE LEVEL 28 MEQ/L (21-32); CHLORIDE LEVEL 106 MEQ/L (98-107); CREATININE FOR GFR 1.09 MG/DL (0.70-1.30); GLOMERULAR FILTRATION RATE > 60.0 (>42); GLUCOSE, FASTING 99 MG/DL (70-100); POTASSIUM SERUM 4.3 MEQ/L (3.5-5.1); SODIUM LEVEL 141 MEQ/L (136-145)
--- NOTE | 2019-06-12 17:11 | REP ---
CHEST, PORTABLE: AP portable view of the chest is performed. COMPARISON: 04/18/2019 as well as other prior exams. There appears to be subtle infiltrate in the right upper lobe inferolaterally. There is mild right apical pleural thickening which is unchanged and there are scattered areas of scarring inferiorly bilaterally which are stable. The heart is normal in size. There is calcification of the thoracic aorta. The mediastinal silhouette is unchanged. Left central venous catheter is again noted. IMPRESSION: Suspect mild peripheral right upper lobe infiltrate. Electronically Signed by Fredy Fitzpatrick MD 06/13/2019 07:48 P
[2019-06-12 21:17] LABS: APPEARANCE, URINE CLOUDY (CLEAR); BACTERIA, URINE AUTO 1+ (NEGATIVE); BILIRUBIN, URINE AUTO NEGATIVE (NEGATIVE); BLOOD, URINE BLOOD NEGATIVE (NEGATIVE); COLOR, URINE YELLOW (YELLOW); GLUCOSE, URINE (UA) AUTO NEGATIVE (NEGATIVE); KETONE, URINE AUTO NEGATIVE (NEGATIVE); LEUKOCYTE ESTERASE, URINE AUTO 3+ (NEGATIVE); MUCUS, URINE SMALL (NEGATIVE); NITRITE, URINE AUTO NEGATIVE (NEGATIVE); PROTEIN, URINE AUTO 1+ mg/dL (NEGATIVE); RBC, URINE AUTO 5 /HPF (0-3); SPECIFIC GRAVITY URINE AUTO 1.013 (1.002-1.035); SQUAMOUS EPITHELIAL CELL UR AU 0 /HPF (0-6); UROBILINOGEN, URINE AUTO 0.2 mg/dL (0.0-2.0); WBC, URINE AUTO TNTC /HPF (0-3)
== END ==
LOC: SKLAB7 13:38
PROVIDERS: ATTEND Internal Medicine
DX: R50.9 Fever, unspecified (principal)